=== PATIENT | male | born 1945 | race African-American/Black ===

== ENCOUNTER → 2016-11-30 | Outpatient (REF) | payer SELFPAY | LOC: M LAB REF 14:25 | PROVIDERS: ATTEND Surgery | DX: R10.9 Unspecified abdominal pain (principal); N40.0 Benign prostatic hyperplasia without lower urinary tract symptoms ==

== ENCOUNTER 2016-12-31 20:55 | Emergency (ER) | payer OTHER ==
[~2016-12-31] VITALS: Ht 188 cm; Wt 90.7 kg
[2016-12-31] MEDS ORDERED: RAMI10CA PO (21:12)
[2016-12-31] MEDS ORDERED: PROS5TAB PO (21:12)
[2016-12-31] MEDS ORDERED: FLOM5CAP PO (21:12)
[2016-12-31] MEDS ORDERED: TYLE325T5 PO (21:12)
[2016-12-31] MEDS ORDERED: AMLO25TA PO (21:12)
[2016-12-31 23:15] VITALS: BP 138/86
== END 2016-12-31 23:53 | disposition home or self-care (01) ==
LOC: M ED 23:33
DX: N40.1 Benign prostatic hyperplasia with lower urinary tract symptoms (principal)

== ENCOUNTER 2017-04-10 19:16 | Emergency (ER) | payer OTHER ==
[~2017-04-10] VITALS: Ht 188 cm; Wt 89.1 kg
[~2017-04-10 19:16] MED LIST: AMLO25TA PO; FLOM5CAP PO; PROS5TAB PO; RAMI10CA PO; TYLE325T5 PO
[2017-04-10] MEDS ORDERED: OXYB10TA PO (19:33)
[2017-04-10] MEDS ORDERED: MORPHINE 4 MG/ML 1ML SYRINGE IV ONE (19:45)
[2017-04-10 20:38] LABS: BASO % 0.3 % (0.0-1.0); EOS # 0.2 K/mm3 (0.0-0.50); EOS % 1.6 % (0.0-3.0); LARGE UNSTAINED CELL # 0.3 K/mm3 (0.0-0.4); LARGE UNSTAINED CELL % 3.1 % (0.0-4.0); LYMPH # 1.3 K/mm3 (1.5-4.5); LYMPH % 13.6 % (24.0-44.0); MEAN CORPUSCULAR HEMOGLOBIN 27.8 pg (27.0-33.0); MEAN CORPUSCULAR HGB CONC 33.7 g/dl (32.0-36.5); MEAN CORPUSCULAR VOLUME 82.5 fl (80.0-96.0); MONO # 0.8 K/mm3 (0.0-0.8); MONO % 8.1 % (0.0-5.0); NEUTROPHILS # 7.3 K/mm3 (1.8-7.7); NEUTROPHILS % 73.4 % (36.0-66.0); PLATELET COUNT, AUTOMATED 211 k/mm3 (150-450); RED CELL DISTRIBUTION WIDTH 15.5 % (11.5-14.5); WHITE BLOOD COUNT 9.9 K/mm3 (4.0-10.0)
--- NOTE | 2017-04-10 20:43 | REP ---
Clinical: Right-sided scrotal induration and pain. Technique: Real time clifford scale and color Doppler evaluation using curved array transducer. Findings: Scrotal wall thickening measuring up to 6 mm is appreciated along with hypervascularity involving the right testicle and epididymis consistent with acute epididymitis/orchitis and correlation is recommended. The left testicle and epididymis appear relatively normal and without increased flow or significant pathology. Incidental note is made of 3 mm left and 4 mm right benign intratesticular cysts. No significant hydrocele or varicocele. Right testicle measures 4.8 x 3.2 x 3.5 cm. Left testicle measures 5.4 x 2.5 x 2.0 cm. Impression: Scrotal wall thickening along with increased vascularity to the right epididymis and right testicle are most compatible with acute epididymitis/orchitis and correlation is recommended. Signed by Omega Mckinney MD 04/10/2017 08:35 P
[2017-04-10 20:44] LABS: ANION GAP 6 MEQ/L (8-16); BLOOD UREA NITROGEN 15 MG/DL (7-18); CALCIUM LEVEL 8.5 MG/DL (8.8-10.2); CARBON DIOXIDE LEVEL 29 MEQ/L (21-32); CHLORIDE LEVEL 107 MEQ/L (98-107); CREATININE FOR GFR 0.84 MG/DL (0.70-1.30); GLOMERULAR FILTRATION RATE > 60.0 (>42); GLUCOSE, FASTING 101 MG/DL (83-110); POTASSIUM SERUM 3.5 MEQ/L (3.5-5.1); SODIUM LEVEL 142 MEQ/L (136-145)
[2017-04-10] MEDS ORDERED: CIPROFLOXACIN 400 MG in APPROPRIATE DILUENT 1 EA IV ONE (20:45)
[2017-04-10] MEDS ORDERED: CIPR-249 PO (21:33)
[2017-04-10 21:53] VITALS: BP 140/76
== END 2017-04-10 22:30 | disposition home or self-care (01) ==
LOC: M ED 19:16
DX: N45.2 Orchitis (principal); N39.0 Urinary tract infection, site not specified; I10 Essential (primary) hypertension; Z79.899 Other long term (current) drug therapy
CPT/HCPCS: 76870; 80048; 81001; 85025; 87040; 87088; 87186; 87491; 87591; 96365; 99283; J0744

== ENCOUNTER 2017-06-26 14:47 | Emergency (ER) | payer OTHER ==
[~2017-06-26] VITALS: Ht 185.4 cm; Wt 90.9 kg
[~2017-06-26 14:47] MED LIST changes: +CIPR-249 PO; +OXYB10TA PO
[2017-06-26] MEDS ORDERED: COLA100C5 PO (15:00)
[2017-06-26 16:39] LABS: BASO % 0.3 % (0.0-1.0); EOS # 0.3 10^3/uL (0.0-0.50); EOS % 3.4 % (0.0-3.0); IMMATURE GRANULOCYTE % 0.3 % (0-0); LYMPH # 2.3 10^3/uL (1.5-4.5); LYMPH % 31.3 % (24.0-44.0); MEAN CORPUSCULAR HEMOGLOBIN 26.6 pg (27.0-33.0); MEAN CORPUSCULAR HGB CONC 32.8 g/dl (32.0-36.5); MEAN CORPUSCULAR VOLUME 81.1 fl (80.0-96.0); MONO # 1.1 10^3/uL (0.0-0.8); MONO % 14.6 % (0.0-5.0); NEUTROPHILS # 3.7 10^3/uL (1.8-7.7); NEUTROPHILS % 50.1 % (36.0-66.0); PLATELET COUNT, AUTOMATED 245 10^3/uL (150-450); WHITE BLOOD COUNT 7.4 10^3/uL (4.0-10.0)
[2017-06-26 16:49] LABS: INR 1.03
[2017-06-26 17:05] LABS: ALBUMIN 3.2 GM/DL (3.2-5.2); ALBUMIN/GLOBULIN RATIO 0.78 (1.00-1.93); ALKALINE PHOSPHATASE 55 U/L (45-117); ALT/SGPT 19 U/L (12-78); ANION GAP 6 MEQ/L (8-16); AST/SGOT 10 U/L (7-37); BILIRUBIN,DIRECT 0.1 MG/DL (0.0-0.2); BILIRUBIN,TOTAL 0.3 MG/DL (0.2-1.0); BLOOD UREA NITROGEN 9 MG/DL (7-18); CALCIUM LEVEL 8.6 MG/DL (8.8-10.2); CARBON DIOXIDE LEVEL 28 MEQ/L (21-32); CHLORIDE LEVEL 105 MEQ/L (98-107); CREATININE FOR GFR 0.83 MG/DL (0.70-1.30); GLOMERULAR FILTRATION RATE > 60.0 (>42); GLUCOSE, FASTING 96 MG/DL (83-110); SODIUM LEVEL 139 MEQ/L (136-145); TOTAL PROTEIN 7.3 GM/DL (6.4-8.2)
[2017-06-26] MEDS ORDERED: NS 500 ML IV ONE (18:15)
[2017-06-26 21:30] VITALS: BP 123/67
--- NOTE | 2017-06-27 09:49 | REP ---
CHEST, TWO VIEWS: There is no evidence of acute infiltrate. No pleural effusion is seen. The heart is normal in size. The mediastinal silhouette is unremarkable. The visualized osseous structures are intact. There is tortuosity of the thoracic aorta. IMPRESSION: No acute pulmonary disease. Signed by Amador Bunn MD 06/27/2017 05:29 P
--- NOTE | 2017-06-27 21:26 | ECGEPIP ---
Stationary ECG Study [facility] - ED Test Date: 2017-06-26 Pat Name: IRENA KHANNA Department: Room: - Gender: M Finisher Hand: JAMIE : 1945 Requested By: [place] Order Number: [id number] Reading MD: Mckenzie Aguilar Measurements Intervals [place] Rate: 66 P: 52 FL: 213 QRS: 21 QRSD: 101 T: 36 QT: 409 QTc: 431 Interpretive Statements SINUS RHYTHM POSSIBLE LEFT VENTRICULAR HYPERTROPHY NSTTW ABNORMALITY NO PRIOR FOR COMPARISON Electronically Signed On 06-27-2017 21:26:29 EST by Mckenzie Aguilar
== END 2017-06-26 21:41 | disposition home or self-care (01) ==
LOC: M ED 14:47
DX: R55 Syncope and collapse (principal); R94.31 Abnormal electrocardiogram [ECG] [EKG]; I10 Essential (primary) hypertension; N40.0 Benign prostatic hyperplasia without lower urinary tract symptoms; Z87.891 Personal history of nicotine dependence; Z79.899 Other long term (current) drug therapy